=== PATIENT | female | born 1940 | race Caucasian/White ===

== ENCOUNTER 2021-01-08 10:14 | Emergency (ER) | payer MEDICARE ==
[~2021-01-08] VITALS: Ht 162.6 cm; Wt 55.9 kg
[2021-01-08 11:24] LABS: BASO % 0.2 % (0.0-2.0); EOS % 0.2 % (0-4.0); GRAN # 12.3 (1.4-6.5); GRAN % 84.7 % (42.2-75.2); HEMATOCRIT 39.4 % (37.0-47.0); HEMOGLOBIN 13.2 g/dl (12.5-16.0); LYMPH # 0.7 (1.2-3.4); LYMPH % 4.7 % (20.0-51.0); MEAN CELL VOLUME 91 fl (80.0-100.0); MEAN CORPUSCULAR HEMOGLOBIN 31 pg (27.0-31.0); MEAN CORPUSCULAR HGB CONC 34 g/dl (33.0-37.0); MEAN PLATELET VOLUME 10.4 fl (7.4-10.4); MONO # 1.4 (0.1-0.6); MONO % 9.7 % (1.7-9.3); PLATELET COUNT 221 K/mm3 (130-400); RED BLOOD COUNT 4.31 M/mm3 (4.10-5.30); REDCELL DISTRIBUTION WIDTH-CV 12.8 % (11.5-14.5)
[2021-01-08 11:35] LABS: CALCIUM 9.3 mg/dL (8.4-10.2); CREATININE, serum 1.2 (0.52-1.25); POTASSIUM 3.1 mmol/L (3.4-5.0); TOTAL PROTEIN 6.9 gm/dL (6.4-8.2)
[2021-01-08 12:33] LABS: COLLECTION METHOD CATHETER
[2021-01-08 12:40] LABS: PH 7 (5-8); SQUAMOUS EPITHELIAL None Seen /hpf; URINE APPEARANCE Clear; URINE BACTERIA None Seen /hpf; URINE BILIRUBIN Negative (NEGATIVE); URINE BLOOD Negative (NEGATIVE); URINE COLOR Straw; URINE GLUCOSE Negative (NEGATIVE); URINE KETONE Negative (NEGATIVE); URINE LEUKOCYTE ESTERASE Negative (NEGATIVE); URINE NITRATE Negative (NEGATIVE); URINE PROTEIN(semi-quant) Negative (NEGATIVE); URINE RBC 0-2 /hpf; URINE UROBILINOGEN Negative (NEGATIVE)
[2021-01-08] MEDS ORDERED: AMOXICILLIN/CLA1 TA1 PO (13:00)
[2021-01-08] MEDS ORDERED: NAMENDA 10MG TA10 MG PO (13:01)
[2021-01-08] MEDS ORDERED: NORVASC 10MG10 MG PO (13:01)
[2021-01-08] MEDS ORDERED: MAXZIDE-25MG TA1 TAB PO (13:06)
[2021-01-08] MEDS ORDERED: LIPITOR 40MG TA40 MG PO (13:07)
[2021-01-08] MEDS ORDERED: COZAAR100 MG (13:07)
[2021-01-08] MEDS ORDERED: SYNTHROID0.075 MG/T PO (13:08)
[2021-01-08] MEDS ORDERED: TOPROL XL 25MG25 MG PO (13:08)
[2021-01-08 13:09] VITALS: TEMP 98.4
[2021-01-08] MEDS ORDERED: ELIQUIS 2.5 (13:09)
[2021-01-08 15:05] VITALS: BP 112/70; PULSE 78
== END 2021-01-08 15:05 | disposition home or self-care (01) ==
LOC: COL.ER 10:14
PROVIDERS: Personal Emergency Response Attendant
DX: R52 Pain, unspecified (principal); E78.00 Pure hypercholesterolemia, unspecified; I10 Essential (primary) hypertension; G30.9 Alzheimer's disease, unspecified; F02.80 Dementia in other diseases classified elsewhere, unspecified severity, without behavioral disturbance, psychotic disturbance, mood disturbance, and anxiety; Z90.710 Acquired absence of both cervix and uterus; Z88.1 Allergy status to other antibiotic agents; Z79.899 Other long term (current) drug therapy; Z79.01 Long term (current) use of anticoagulants
CPT/HCPCS: J1885; J2270; J2405; J7030